=== PATIENT | male | born 1980 | race American Indian/Alaskan Native ===

== ENCOUNTER 2019-11-02 14:44 | Emergency (ER) | payer SELFPAY ==
[2019-11-02 14:50] VITALS: BP 129/86
--- NOTE | 2019-11-02 14:53 | Emergency Department Report ---
ED Eye Problem HPI - General Chief complaint: Eye Problems Stated complaint: EYE INJURY Time Seen by Provider: 11/02/19 14:53 Source: patient Mode of arrival: Ambulatory Limitations: No Limitations - History of Present Illness Initial comments: 39-year-old -[place] male presents to the emergency room for right eye injury with a piece of wood. Patient states that he was sawing wood when the wind blew and blew the particles into his eye. Patient complains of severe eye pain. Patient denies any medical history currently takes no medications on a daily basis and has no known drug allergies. chief complaint: eye pain, eye injury, foreign body -: This afternoon Onset Description: sudden Location: right eye Place: home Eye Symptoms: redness, pain, foreign body sensation Severity: severe Severity scale (0 -10): 10 If Pain, Quality: sharp, throbbing, stabbing Consistency: constant Treatments Prior to Arrival: none - Related Data Patient Tetanus UTD: No Previous Rx's Medication Instructions Recorded Last Taken Type HYDROcodone/APAP 7.5-325 [[place] 1 each PO Q8HR PRN #12 tablet 11/02/19 Unknown Rx 7.5/325] Ibuprofen [Motrin 600 MG tab] 600 mg PO Q8H PRN #15 tablet 11/02/19 Unknown Rx Ofloxacin 0.3% [Ocuflox 0.3% opth] 2 drops OP QID #1 bottle 11/02/19 Unknown Rx Allergies Allergy/AdvReac Type Severity Reaction Status Date / Time No Known Allergies Allergy Unverified 11/02/19 14:46 ED Review of Systems ROS: Stated complaint: EYE INJURY Other details as noted in HPI Comment: All other systems reviewed and negative ED Past Medical Hx - Past Medical History Previous Medical History?: Yes Additional medical history: Douglas wrist injury - Surgical History Past Surgical History?: Yes Additional Surgical History: douglas wrist surgery - Social History Smoking Status: Current Every Day Smoker Substance Use Type: Alcohol, Marijuana - Medications Home Medications: Home Medications Medication Instructions Recorded Confirmed Last Taken Type HYDROcodone/APAP 7.5-325 [[place] 1 each PO Q8HR PRN #12 tablet 11/02/19 Unknown Rx 7.5/325] Ibuprofen [Motrin 600 MG tab] 600 mg PO Q8H PRN #15 tablet 11/02/19 Unknown Rx Ofloxacin 0.3% [Ocuflox 0.3% opth] 2 drops OP QID #1 bottle 11/02/19 Unknown Rx ED Physical Exam - General Limitations: No Limitations General appearance: alert, in no apparent distress - Head Head exam: Present: atraumatic, normocephalic - Eye Eye exam: Present: EOMI Pupils: Present: other (Fluorescein exam of right eyes shows dye uptake anterior cornea and mid cornea) - Expanded Eye Exam Expanded Pupils: Regular, Round: Left - ENT ENT exam: Present: mucous membranes moist - Neck Neck exam: Present: normal inspection, full ROM - Neurological Exam Neurological exam: Present: alert, oriented X3 - Psychiatric Psychiatric exam: Present: normal affect, normal mood - Skin Skin exam: Present: warm, dry, intact, normal color. Absent: rash ED Course Vital Signs 11/02/19 11/02/19 14:48 15:07 Temperature 98.3 F Pulse Rate 72 Respiratory 18 20 Rate Blood Pressure 129/86 O2 Sat by Pulse 995 H Oximetry ED Medical Decision Making - Medical Decision Making 39-year-old -[place] male presents to the emergency room for right eye injury with a piece of wood. Patient states that he was sawing wood when the wind blew and blew the particles into his eye. Patient complains of severe eye pain. Patient denies any medical history currently takes no medications on a daily basis and has no known drug allergies. Patient has a right corneal abrasion with no foreign body appreciated. Right eye was irrigated with a Nasim lens of 700 mL's. Pain medication [place] and ibuprofen was given to patient. Patient reports that the pain has improved. After eye exam patient reports that he is able to see better. I discussed the patient I will place him on ofloxacin eye ointment and refer him to an oph thalmologist. Patient verbalized understanding. Critical care attestation.: If time is entered above; I have spent that time in minutes in the direct care of this critically ill patient, excluding procedure time. ED Disposition Clinical Impression: Corneal abrasion, right Qualifiers: Encounter type: initial encounter Qualified Code(s): S05.01XA - Injury of conjunctiva and corneal abrasion without foreign body, right eye, initial encounter Disposition: TO HOME OR SELFCARE Is pt being admited?: No Does the pt Need Aspirin: No Condition: Stable Instructions: Corneal Abrasion (ED) Additional Instructions: Please use I antibiotic as prescribed. Take pain medication only as needed. Do not operate heavy machinery while taking [place]. Follow-up with an assembly instructions writer I have listed several below for your convenience. Prescriptions: Ibuprofen [Motrin 600 MG tab] 600 mg PO Q8H PRN #15 tablet PRN Reason: Pain HYDROcodone/APAP 7.5-325 [[place] 7.5/325] 1 each PO Q8HR PRN #12 tablet PRN Reason: Pain Ofloxacin 0.3% [Ocuflox 0.3% opth] 2 drops OP QID #1 bottle Referrals: YAKOV AGEE MD [Staff Physician] - 3-5 Days [facility] [Provider Group] - 3-5 Days [facility] [Provider Group] - 3-5 Days Forms: Work/School Release Form(ED)
[2019-11-02] MEDS ORDERED: IBUPROFEN 600 MG TAB PO ONE (14:56)
[2019-11-02] MEDS ORDERED: HYDROcodone/ACETAMINOPHEN 10-325MG TAB PO ONE (14:56)
[2019-11-02] MEDS ORDERED: FLUORESCEIN 1 MG STRIP OP ONE (14:57)
[2019-11-02] MEDS ORDERED: BALANCED SALT IRRIG (BSS) OPHTH SOLN 15 ML OU ONE (14:57)
[2019-11-02] MEDS ORDERED: TETRACAINE 0.5% OPHTH SOLN 4ML OU ONE (14:57)
[2019-11-02] MEDS ORDERED: SODIUM CHLORIDE IRRI 500 ML 500 ML IR ONE (16:00)
[2019-11-02] MEDS ORDERED: SODIUM CHLORIDE 0.9% 1000 ML 1,000 ML ONE (16:04)
== END 2019-11-02 17:34 | disposition home or self-care (01) ==
LOC: ED 14:44
DX: S05.01XA Injury of conjunctiva and corneal abrasion without foreign body, right eye, initial encounter (principal); F17.200 Nicotine dependence, unspecified, uncomplicated; Z98.890 Other specified postprocedural states; Z79.1 Long term (current) use of non-steroidal anti-inflammatories (NSAID); Z79.2 Long term (current) use of antibiotics; Z79.899 Other long term (current) drug therapy; X58.XXXA Exposure to other specified factors, initial encounter; Y93.89 Activity, other specified; Y92.009 Unspecified place in unspecified non-institutional (private) residence as the place of occurrence of the external cause; Y99.8 Other external cause status
CPT/HCPCS: 99284; J7030

== ENCOUNTER 2019-11-09 17:34 | Emergency (ER) | payer SELFPAY ==
[2019-11-09 17:50] VITALS: BP 117/66
[2019-11-09] MEDS ORDERED: TETANUS,DIPH,PERTUSS(ACELL) VACCINE 0.5 ML SYRINGE IM ONE (18:37)
[2019-11-09] MEDS ORDERED: HYDROcodone/ACETAMINOPHEN 5-325 MG TAB PO ONE (18:37)
[2019-11-09] MEDS ORDERED: SODIUM CHLORIDE 0.9% IRR 500 ML BOTTLE IR ONE (18:37)
[2019-11-09] MEDS ORDERED: LIDOCAINE-MPF (1%) 10 MG/1 ML VIAL 5 ML INFILTRATI ONE (18:38)
--- NOTE | 2019-11-09 18:47 | Emergency Department Report ---
- General Chief Complaint: Laceration/Recheck/Suture Stated Complaint: LACERATION ON ARM Time Seen by Provider: 11/09/19 18:37 Source: patient Mode of arrival: Ambulatory Limitations: No Limitations - History of Present Illness Initial Comments: Patient is a 39-year-old male who presents the emergency room with complaints of a laceration to the left forearm that occurred at 12PM. He states that he was moving a mirror and it accidentally broke and cut him on the arm. He states he is able to move the arm without any difficulty. He denies any numbness or weakness. He states initially there was bleeding but he washed it with peroxide and put some Neosporin ointment and the bleeding resolved. He is unsure of his last tetanus immunization. He denies any past medical history or allergies medications. - Related Data Previous Rx's Medication Instructions Recorded Last Taken Type HYDROcodone/APAP 7.5-325 [[place] 1 each PO Q8HR PRN #12 tablet 11/02/19 Unknown Rx 7.5/325] Ibuprofen [Motrin 600 MG tab] 600 mg PO Q8H PRN #15 tablet 11/02/19 Unknown Rx Ofloxacin 0.3% [Ocuflox 0.3% opth] 2 drops OP QID #1 bottle 11/02/19 Unknown Rx Allergies Allergy/AdvReac Type Severity Reaction Status Date / Time No Known Allergies Allergy Unverified 11/02/19 14:46 ED Review of Systems ROS: Stated complaint: LACERATION ON ARM Other details as noted in HPI Comment: All other systems reviewed and negative ED Past Medical Hx - Past Medical History Previous Medical History?: Yes Additional medical history: Douglas wrist injury - Surgical History Past Surgical History?: Yes Additional Surgical History: douglas wrist surgery - Social History Smoking Status: Never Smoker Substance Use Type: None - Medications Home Medications: Home Medications Medication Instructions Recorded Confirmed Last Taken Type HYDROcodone/APAP 7.5-325 [[place] 1 each PO Q8HR PRN #12 tablet 11/02/19 Unknown Rx 7.5/325] Ibuprofen [Motrin 600 MG tab] 600 mg PO Q8H PRN #15 tablet 11/02/19 Unknown Rx Ofloxacin 0.3% [Ocuflox 0.3% opth] 2 drops OP QID #1 bottle 11/02/19 Unknown Rx ED Physical Exam - General Limitations: No Limitations General appearance: alert, in no apparent distress - Head Head exam: Present: atraumatic, normocephalic - Eye Eye exam: Present: normal appearance - ENT ENT exam: Present: mucous membranes moist - Neurological Exam Neurological exam: Present: alert, oriented X3 - Psychiatric Psychiatric exam: Present: normal affect, normal mood - Skin Skin exam: Present: warm, dry, other (3 cm laceration present to the left posterolateral forearm, no active bleeding, no muscle tendon involvement, no visualized foreign body, neurovascularly intact, FROM of the LUE) ED Course Vital Signs 11/09/19 11/09/19 17:46 18:54 Temperature 98.1 F Pulse Rate 66 Respiratory 16 18 Rate Blood Pressure 117/66 O2 Sat by Pulse 97 Oximetry - Laceration /Wound Repair Left Posterior Lateral Arm Wound Location: upper extremity (left posterolateral forearm) Wound Length (cm): 3 Wound's Depth, Shape: superficial Wound Explored: clean Irrigated w/ Saline (ccs): 500 Betadine Prep?: Yes Anesthesia: 1% Lidocaine Volume Anesthetic (ccs): 3 Wound Debrided: moderate Wound Repaired With: sutures Suture Size/Type: 3:0 Number of Sutures: 7 Layer Closure?: No Sterile Dressing Applied?: Yes Progress: Wound irrigated with saline and thoroughly scrubbed with Betadine, 3 cc of 1% lidocaine without epinephrine used as anesthetic, Betadine prep again, sterile drapes applied, sterile gloves worn, 3-0 Prolene used for skin closure, 7 sutures placed, patient tolerated well, no complications, bleeding controlled, sterile dressing applied ED Medical Decision Making - Medical Decision Making Patient is a 39-year-old male who presents the emergency room with complaints of a laceration to the left forearm that occurred at 12PM. He states that he was moving a mirror and it accidentally broke and cut him on the arm. He states he is able to move the arm without any difficulty. He denies any numbness or weakness. He states initially there was bleeding but he washed it with peroxide and put some Neosporin ointment and the bleeding resolved. He is unsure of his last tetanus immunization. He denies any past medical history or allergies medications. on exam: 3 cm laceration present to the left posterolateral forearm, no active bleeding, no muscle tendon involvement, no visualized foreign body, neurovascularly intact, FROM of the LUE. Laceration irrigated with saline and thoroughly scrubbed with Betadine and repaired procedure note. pt given tetanus immunization and norco as he did not drive. Please keep area clean, dry, covered. May wash with soap and water and immediately dry. No hot tub, no poo l, no soaking in water. Sutures need to be removed in 7 to 10 days. Follow-up with a primary care doctor for reexamination. Return to the emergency room immediately for any new or worsening symptoms or any signs of infection. Critical care attestation.: If time is entered above; I have spent that time in minutes in the direct care of this critically ill patient, excluding procedure time. ED Disposition Clinical Impression: Laceration of left forearm Qualifiers: Encounter type: initial encounter Qualified Code(s): S51.812A - Laceration without foreign body of left forearm, initial encounter Disposition: TO HOME OR SELFCARE Is pt being admited?: No Does the pt Need Aspirin: No Condition: Stable Instructions: Suture Care (ED), Laceration (ED) Additional Instructions: Please keep area clean, dry, covered. May wash with soap and water and immediately dry. No hot tub, no pool, no soaking in water. Sutures need to be removed in 7 to 10 days. Follow-up with a primary care doctor for reexamination. Return to the emergency room immediately for any new or worsening symptoms or any signs of infection. Referrals: MICHAEL SEGOVIA MD [Staff Physician] - 3-5 Days [facility] [place] [Outside] - 3-5 Days [facility] [Provider Group] - 3-5 Days [facility] [Outside] - 3-5 Days Time of Disposition: 19:54 Print Language: ITALIAN
== END 2019-11-09 20:01 | disposition home or self-care (01) ==
LOC: ED 17:34
DX: S51.812A Laceration without foreign body of left forearm, initial encounter (principal); Z98.890 Other specified postprocedural states; Z79.899 Other long term (current) drug therapy; W25.XXXA Contact with sharp glass, initial encounter; Y93.89 Activity, other specified; Y92.89 Other specified places as the place of occurrence of the external cause; Y99.8 Other external cause status
CPT/HCPCS: 90471; 90715; 99282